=== PATIENT | male | born 1960 | race Caucasian/White ===

== ENCOUNTER 2021-03-23 20:04 | Emergency (ER) | payer OTHER, SELFPAY ==
[2021-03-23 20:13] VITALS: BP 159/89; PULSE 93; RESP 22; TEMP 37.1; O2SAT 93; BMI 31.3
--- NOTE | 2021-03-23 20:23 | DI.RAD.S_ITS ---
PROCEDURE: XR LUMBAR SPINE 2-3V INDICATIONS: Fell, shoulder/back pain TECHNIQUE: 3 views of the lumbar spine were acquired. COMPARISON: None. FINDINGS: Bones: 5 [id number] vertebrae are present. There is minimal retrolisthesis at L1-L2 and L2-L3. There is mild multilevel disc space narrowing throughout the lumbar spine with mild endplate sclerosis. Mild facet arthropathy also demonstrated in the lower lumbar spine. No vertebral body compression fractures. No suspicious bony lesions. Soft tissues: Overlying bowel gas pattern is normal. No suspicious soft tissue calcifications. IMPRESSION: 1. No evidence of fracture or subluxation. 2. Mild multilevel degenerative disc disease throughout the lumbar spine as well as mild facet arthropathy in the lower lumbar spine. Dictated by: Karthikeyan Lenz M.D. on 03/23/2021 at 22:02 Approved by: Karthikeyan Lenz M.D. on 03/23/2021 at 22:03
--- NOTE | 2021-03-23 20:23 | DI.RAD.S_ITS ---
PROCEDURE: XR SHOULDER RT MIN 2V INDICATIONS: Fell, shoulder/back pain TECHNIQUE: 3 views of the shoulder were acquired. COMPARISON: None. FINDINGS: Bones: No fractures or dislocations. No suspicious bony lesions. Visualized ribs appear intact. Soft tissues: No suspicious soft tissue calcifications. IMPRESSION: 1. No fracture or dislocation Dictated by: Karthikeyan Lenz M.D. on 03/23/2021 at 22:01 Approved by: Karthikeyan Lenz M.D. on 03/23/2021 at 22:01
--- NOTE | 2021-03-23 20:23 | DI.RAD.S_ITS ---
PROCEDURE: XR THORACIC SPINE 3V INDICATIONS: Fell, shoulder/back pain TECHNIQUE: 3 views of the thoracic spine were acquired. COMPARISON: None. FINDINGS: Bones: No fractures or subluxation. There is mild multilevel degenerative disc disease within the visualized thoracic and lumbar spine. No suspicious bony lesions. 12 pairs of ribs are noted, and appear intact where visualized. Soft tissues: No paravertebral stripe thickening. IMPRESSION: 1. No evidence of fracture or subluxation. Dictated by: Karthikeyan Lenz M.D. on 03/23/2021 at 22:01 Approved by: Karthikeyan Lenz M.D. on 03/23/2021 at 22:02
--- NOTE | 2021-03-23 22:49 | ED_ITS ---
HPI - Back Pain/Injury General Chief Complaint: Back Pain/Injury Stated Complaint: back pain s/p fall 4 days ago Time Seen by Provider: 03/23/21 22:39 Source: patient History of Present Illness HPI Narrative: Patient is a 60-year-old male history of COPD, hyperlipidemia who presents after fall. He states he was getting out of his RV when he slipped and fell 4 days ago. She he has had ongoing right-sided back pain that shoots up into his right shoulder blade. She has no numbness or tingling in his lower extremities. No change in bowel or bladder habits. He has been taking Aleve without a lot of relief. 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 He feels like he is not get recovered. No head injury or loss of consciousness. He is able to walk. Related Data Previous Rx's Medication Instructions Recorded cyclobenzaprine 5 mg tablet 5 mg PO TID PRN #10 tab 03/23/21 hydrocodone 5 mg-acetaminophen 325 1 tab PO Q6H PRN #10 tab 03/23/21 mg tablet Allergies Allergy/AdvReac Type Severity Reaction Status Date / Time Penicillins Allergy Intermediate Rash Verified 03/23/21 20:12 hydrocodone AdvReac Vomiting Verified 03/23/21 20:12 Review of Systems Review of Systems Narrative: GENERAL: Denies chills,fever HEENT: Denies throat pain RESPIRATORY: Denies dyspnea, cough, wheezing CARDIOVASCULAR: Denies chest pain, palpitations GASTROINTESTINAL: Denies nausea, vomiting MUSCULOSKELETAL: See HPI SKIN: No rash, no laceration, no pruritus NEUROLOGIC: Denies weakness, dizziness, headache, numbness 8 point review of systems is negative except for those stated above and HPI Patient History Social History Smoking Status: Former smoker Smoking Status: Former smoker alcohol intake frequency: a few times a month Substance Use Type: does not use Exam Initial Vital Signs Initial Vital Signs: Vital Signs Temperature 98.8 F 03/23/21 20:13 Pulse Rate 93 H 03/23/21 20:13 Respiratory Rate 22 03/23/21 20:13 Blood Pressure 159/89 H 03/23/21 20:13 Pulse Oximetry 93 03/23/21 20:13 GENERAL: Alert 60-year-old male sitting on edge of bed appears uncomfortable leaning towards the left CARDIOVASCULAR: peripheral pulses in tact, cap refill <2 sec RESPIRATORY: No respiratory distress, speaks in full sentences without difficulty BACK: Slightly tender in the lumbar spine over vertebral areas head more tender in the paraspinal muscles significantly most tender in the right lateral lumbar area. It is tender to touch muscle spasm is appreciated reproducible with palpation. EXTREMITIES: Normal range of motion, no clubbing or edema. Neurovascularly intact NEUROLOGICAL: Cranial nerves II through XII grossly intact. Normal gait and speech. Sensation in lower extremities intact and equal SKIN: Warm, dry, no petechiae, no rashes or lesions. Course Orders Ordered: ED Orders 03/23/21 20:23 XR lumbar spine 2-3V Stat XR shoulder RT min 2V Stat XR thoracic spine 3V Stat Discontinued Medications Cyclobenzaprine HCl (Cyclobenzaprine 10 Mg Prepack) 1 bottle [facility] [place] ONE Stop: 03/23/21 23:04 Last Admin: 03/23/21 23:09 Dose: 1 bottle Documented by: SARAY Ketorolac Tromethamine (Ketorolac 30 Mg/Ml Vial) 30 mg IM NOW ONE Stop: 03/23/21 23:04 Last Admin: 03/23/21 23:09 Dose: 30 mg Documented by: SARAY Oxycodone/Acetaminophen (Oxycodone/Apap 5/325 Prepack) 1 bottle [facility] [place] ONE Stop: 03/23/21 23:06 Last Admin: 03/23/21 23:09 Dose: 1 bottle Documented by: SARAY Vital Signs Vital signs: Vital Signs - 8 hr 03/23/21 20:13 03/23/21 23:38 Temperature 98.8 F 98.0 F Pulse Rate 93 H 68 Respiratory Rate 22 16 Blood Pressure 159/89 H 137/82 Pulse Oximetry 93 95 MDM - Back Pain/Injury Imaging Data Extremity x-ray #1: Radiologist's Impression: PROCEDURE:? XR LUMBAR SPINE 2-3V ? INDICATIONS:? Fell, shoulder/back pain ? TECHNIQUE:? 3 views of the lumbar spine were acquired.? ? COMPARISON:? None. ? FINDINGS:? ? Bones:? 5 [id number] vertebrae are present.? There is minimal retrolisthesis at L1-L2 and L2-L3.? There is mild multilevel disc space narrowing throughout the lumbar spine with mild endplate sclerosis.? Mild facet arthropathy also demonstrated in the lower lumbar spine.? No vertebral body compression fractures.? No suspicious bony lesions.? ? Soft tissues:? Overlying bowel gas pattern is normal.? No suspicious soft tissue calcifications.? ? IMPRESSION:? ? 1. No evidence of fracture or subluxation. ? 2. Mild multilevel degenerative disc disease throughout the lumbar spine as well as mild facet arthropathy in the lower lumbar spine.? ? ? Dictated by: Karthikeyan Lenz M.D. on 03/23/2021 at 22:02 ? ? Approved by: Karthikeyan Lenz M.D. on 03/23/2021 at 22:03 ? Extremity x-ray #2: Radiologist's Impression: PROCEDURE:? XR SHOULDER RT MIN 2V ? INDICATIONS:? Fell, shoulder/back pain ? TECHNIQUE:? 3 views of the shoulder were acquired.? ? COMPARISON:? None. ? FINDINGS:? ? Bones:? No fractures or dislocations.? No suspicious bony lesions.? Visualized ribs appear intact.? ? Soft tissues:? No suspicious soft tissue calcifications.? ? IMPRESSION:? ? 1. No fracture or dislocation ? ? Dictated by: Karthikeyan Lenz M.D. on 03/23/2021 at 22:01 ? ? Extremity x-ray #3: Radiologist's Impression: PROCEDURE:? XR THORACIC SPINE 3V ? INDICATIONS:? Fell, shoulder/back pain ? TECHNIQUE:? 3 views of the thoracic spine were acquired.? ? COMPARISON:? None. ? FINDINGS:? ? Bones:? No fractures or subluxation.? There is mild multilevel degenerative disc disease within the visualized thoracic and lumbar spine.? No suspicious bony lesions.? 12 pairs of ribs are noted, and appear intact where visualized.? ? Soft tissues:? No paravertebral stripe thickening.? ? IMPRESSION:? ? 1. No evidence of fracture or subluxation. ? ? Dictated by: Karthikeyan Lenz M.D. on 03/23/2021 at 22:01 [facility] Narrative Medical decision making narrative: Patient had a fall 4 days ago and continued to aggravate his back while working with heavy machinery. The pain is definitely reproducible with palpation this is likely a muscle spasm. X-rays are negative. This time I see no need for any further imaging such as a CT scan. He is offered a work note but declines at this time. He is given cyclobenzaprine and hydrocodone for discharge medications. Discharge Plan Departure Patient Disposition: Home Clinical Impression: Lumbar back pain Instructions: DI for Low Back Pain, DI for Back Spasm Activity Restrictions/Additional Instructions: *You have been diagnosed with back spasm *What to do: At this time recommend heating pad light stretching x-rays are negative for broken bone *Continue to take medications as directed Ibuprofen 600 mg every 6 hours if needed for [id number] pain Flexeril 5 mg every 8 hours if needed for muscle spasm do not take while operating heavy machinery [place] 1 tablet every 6 hours if needed for severe pain do not take while operating heavy machinery or drive *Follow up with your primary care provider in 2-3 days *Return to ER if you should have increasing pain, weakness in legs, change in urine or stool or any new weakness or any new, worsening or concerning symptoms CONTROLLED SUBSTANCE DISCHARGE (Narcotoic/benzodiazepine/Flexeril/Phenergan) 1. You have been prescribed narcotic medications, it does have acetaminophen/Tylenol/paracetamol in it, DO NOT TAKE MORE THAN 4,00mg in 24 hours of Tylenol. TRAMADOL DOES NOT CONTAIN TYLENOL 2. Please understand that we cannot provide further refills of narcotics, benzodiazepines or controlled substances through the ED and her pain management will need to be through your provider. 3. While on these medications you cannot drive or operate heavy machinery. 4. You cannot sign legal documents or perform any duties such as this. 5. As long as you're taking opiate pain medications he should also be taking a stool softener such as Colace, Dulcolax, MiraLAX or prune juice, to help avoid constipation. Prescriptions: New hydrocodone-acetaminophen 5-325 mg tablet 1 tab PO Q6H PRN (Reason: pain) Qty: 10 0RF cyclobenzaprine 5 mg tablet 5 mg PO TID PRN (Reason: muscle spasm) Qty: 10 0RF
[2021-03-23] MEDS: OXYCODONE/APAP 5/325 PREPACK 1 BOTTLE MISC (23:09)
[2021-03-23] MEDS: CYCLOBENZAPRINE 10 MG PREPACK 1 BOTTLE MISC (23:09)
[2021-03-23] MEDS: KETOROLAC 30 MG/ML VIAL IM (23:09)
[2021-03-23 23:38] VITALS: BP 137/82; PULSE 68; RESP 16; TEMP 36.7; O2SAT 95
== END 2021-03-23 23:40 | disposition home or self-care (01) ==
PROVIDERS: Emergency Provider Emergency Medicine
DX: M54.50 Low back pain, unspecified (principal); W01.0XXA Fall on same level from slipping, tripping and stumbling without subsequent striking against object, initial encounter
CPT/HCPCS: 72072; 72100; 73030; 96372; 99283; J1885

== ENCOUNTER 2021-08-15 18:14 | Emergency (ER) | payer BC, SELFPAY ==
[2021-08-15] VITALS (9 sets, daily range): BP systolic 112–148; BP diastolic 58–96; PULSE 54–67; RESP 12–24; TEMP 36.9; O2SAT 91–94; BMI 32.8
--- NOTE | 2021-08-15 18:31 | DI.RAD.S_ITS ---
PROCEDURE: XR CHEST 1V INDICATIONS: SHORTNESS OF BREATH TECHNIQUE: One view of the chest was acquired. COMPARISON: None. FINDINGS: Surgical changes and devices: None. Lungs and pleura: Increased interstitial markings. No pleural effusions or pneumothorax. Mediastinum: Mediastinal contours appear normal. Cardiomegaly. Bones and chest wall: No suspicious bony lesions. Overlying soft tissues appear unremarkable. IMPRESSION: Cardiomegaly with mild interstitial edema. Dictated by: Ayden Mabry M.D. on 08/15/2021 at 18:35 Approved by: Ayden Mabry M.D. on 08/15/2021 at 18:37
--- NOTE | 2021-08-15 19:16 | ED_ITS ---
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 Yesterday he states that he had a fever with some chills last night. He describes he was dizzy yesterday, he had bent over while at work and required assistance from his coworkers to stand back up which is unusual for him. Complains of a low-grade headache. He does note that he has had 2 COVID vaccinations. Review he describes rib injury in the lower right side about 3-4 weeks ago at work. Still describes some minor pain in the area but it is improving significantly. Describes no chest pain, palpitations, orthopnea, lower extremity edema. He does note that he has been feeling increasingly dyspneic and that was the main incentive for his visit today. Related Data Previous Rx's Medication Instructions Recorded cyclobenzaprine 5 mg tablet 5 mg PO TID PRN #10 tab 03/23/21 hydrocodone 5 mg-acetaminophen 325 1 tab PO Q6H PRN #10 tab 03/23/21 mg tablet doxycycline monohydrate 100 mg 100 mg PO BID #20 cap 08/15/21 capsule prednisone 20 mg tablet 20 mg PO BID #11 tab 08/15/21 Allergies Allergy/AdvReac Type Severity Reaction Status Date / Time Penicillins Allergy Intermediate Rash Verified 08/15/21 18:30 hydrocodone AdvReac Vomiting Verified 08/15/21 18:30 Review of Systems Review of Systems Narrative: Remainder of complete review of systems is otherwise unremarkable except for that included in the HPI. Patient History Medical History (Updated 08/15/21 @ 21:13 by Lynnette Roblero MD) COPD (chronic obstructive pulmonary disease) Diabetes Gout Hyperlipidemia Social History Smoking Status: Former smoker Smoking Status: Former smoker alcohol intake frequency: a few times a month Substance Use Type: does not use Exam Initial Vital Signs Initial Vital Signs: Vital Signs Pulse Rate 63 08/15/21 18:24 Respiratory Rate 21 08/15/21 18:24 Blood Pressure 130/63 08/15/21 18:24 Pulse Oximetry 94 08/15/21 18:24 General: Healthy appearing, in no acute distress. Able to give a complete and coherent history. Well-nourished well-developed HEENT: Moist mucous membranes, normal sclera with reactive pupils, Neck: No JVD, supple Respiratory: Lungs with scattered wheeze in all lung alfredo, rhonchi bilaterally right greater than left, no crackles. Cardiac: Irregular rhythm, no murmurs, no bruits Abdomen: Soft, nontender, good bowel tones, no flank pain Skin: Warm and dry, no rashes Neurologic: Grossly neurologically intact with no obvious asymmetries or abnormalities Extremities: No trauma, well perfused, no lower extremity edema Psych: Cooperative, appropriate insight and affect Course Orders Ordered: ED Orders 08/15/21 18:23 EKG-12 Lead Routine 08/15/21 18:30 COVID19 -Nasal RAPID/Pre-Proc Stat Complete Blood Count AUTO DIFF Stat Comprehensive Metabolic Panel Stat Lactate (Lactic Acid) Stat NT-proBNP (BNP-Adult 18+) Stat Troponin I Stat 08/15/21 18:31 XR chest 1V Stat 08/15/21 19:00 EKG-12 Lead Stat Measure peak expiratory flow ONCE RT Consult Eval and Treat Now 08/15/21 19:01 XR chest 1V Stat Discontinued Medications Doxycycline Hyclate (Doxycycline Hyclate 100 Mg Tablet) 100 mg PO NOW ONE Stop: 08/15/21 20:00 Last Admin: 08/15/21 20:10 Dose: 100 mg Documented by: Levofloxacin (Levofloxacin 250 Mg Tablet) 750 mg PO NOW ONE Stop: 08/15/21 19:44 Last Admin: 08/15/21 19:52 Dose: 750 mg Documented by: Methylprednisolone (Methylprednisolone 125 Mg/2 Ml Vial) 60 mg IV NOW ONE Stop: 08/15/21 19:44 Last Admin: 08/15/21 19:52 Dose: 60 mg Documented by: Vital Signs Vital signs: Vital Signs - 8 hr 08/15/21 18:24 08/15/21 18:30 08/15/21 19:00 Temperature 98.4 F Pulse Rate 63 63 60 Respiratory Rate 21 20 21 Blood Pressure 130/63 115/58 L 112/61 Pulse Oximetry 94 94 92 Medical Decision Making Lab Data Result diagrams: 08/15/21 18:30 08/15/21 18:30 Labs: Lab Results 08/15/21 08/15/21 08/15/21 Range/Units 18:30 18:30 18:30 WBC 9.3 (4.5-11.0) X10^3/uL RBC 4.65 (4.5-5.9) X10^6/uL Hgb 14.0 (13.5-17.5) g/dL Hct 40.9 L (41-53) % MCV 87.9 (80-100) fL MCH 30.2 (26-34) PG MCHC 34.3 (30-36) % RDW 13.7 (11.6-14.8) % Plt Count 179 (150-400) X10^3/uL Neut % (Auto) 68.9 (50-75) % Lymph % (Auto) 18.2 L (25-40) % [place] % (Auto) 10.3 (3-14) % Eos % (Auto) 2.1 (2-4) % Baso % (Auto) 0.5 (0-2) % Neut # (Auto) 6400 (5065-6220) /uL Lymph # (Auto) 1700 (9287-7242) /uL [place] # (Auto) 1000 H (0-900) /uL Eos # (Auto) 200 (0-450) /uL Baso # (Auto) 0 (0-100) /uL Sodium 140 (137-145) mmol/L Potassium 4.2 (3.4-5.1) mmol/L Chloride 100 (98-107) mmol/L Carbon Dioxide 35 H (22-32) mmol/L BUN 18 (9-20) mg/dL Creatinine 0.67 (0.66-1.25) mg/dL Estimated GFR > 60 (>60) mL/min BUN/Creatinine Ratio 26.9 H (6-22) Glucose 177 H (80-110) mg/dL Lactate 1.1 (0.7-2.1) mmol/L Calcium 9.6 (8.4-10.2) mg/dL Total Bilirubin 0.9 (0.2-1.3) mg/dL AST 27 (17-59) IU/L ALT 22 (<50) IU/L Alkaline Phosphatase 92 (38-126) U/L Troponin I (0.01-0.034) ng/mL NT-Pro-B Natriuret Pep (<125) pg/mL Total Protein 8.0 (6.3-8.2) g/dL Albumin 4.5 (3.5-5.0) g/dL Globulin 3.5 (1.7-4.1) g/dL Albumin/Globulin Ratio 1.3 (1.0-2.8) SARS-CoV-2 (PCR) (Negative) 08/15/21 08/15/21 08/15/21 Range/Units 18:30 18:30 18:30 WBC (4.5-11.0) X10^3/uL RBC (4.5-5.9) X10^6/uL Hgb (13.5-17.5) g/dL Hct (41-53) % MCV (80-100) fL MCH (26-34) PG MCHC (30-36) % RDW (11.6-14.8) % Plt Count (150-400) X10^3/uL Neut % (Auto) (50-75) % Lymph % (Auto) (25-40) % [place] % (Auto) (3-14) % Eos % (Auto) (2-4) % Baso % (Auto) (0-2) % Neut # (Auto) (8712-2980) /uL Lymph # (Auto) (4335-7092) /uL [place] # (Auto) (0-900) /uL Eos # (Auto) (0-450) /uL Baso # (Auto) (0-100) /uL Sodium (137-145) mmol/L Potassium (3.4-5.1) mmol/L Chloride (98-107) mmol/L Carbon Dioxide (22-32) mmol/L BUN (9-20) mg/dL Creatinine (0.66-1.25) mg/dL Estimated GFR (>60) mL/min BUN/Creatinine Ratio (6-22) Glucose (80-110) mg/dL Lactate (0.7-2.1) mmol/L Calcium (8.4-10.2) mg/dL Total Bilirubin (0.2-1.3) mg/dL AST (17-59) IU/L ALT (<50) IU/L Alkaline Phosphatase (38-126) U/L Troponin I < 0.012 (0.01-0.034) ng/mL NT-Pro-B Natriuret Pep 376 H (<125) pg/mL Total Protein (6.3-8.2) g/dL Albumin (3.5-5.0) g/dL Globulin (1.7-4.1) g/dL Albumin/Globulin Ratio (1.0-2.8) SARS-CoV-2 (PCR) Negative (Negative) Imaging Data Chest x-ray: My Impression: Independent review of chest x-ray suggests linear streaking in the right base was consistent with his clinical exam and concern for developing pneumonia Radiologist's Impression: FINDINGS:? ? Surgical changes and devices:? None.? ? Lungs and pleura:? Increased interstitial markings.? No pleural effusions or pneumothorax.? ? Mediastinum:? Mediastinal contours appear normal.? Cardiomegaly. ? Bones and chest wall:? No suspicious bony lesions.? Overlying soft tissues appear unremarkable.? ? IMPRESSION:? Cardiomegaly with mild interstitial edema. ? ? Dictated by: Ayden Mabry M.D. on 08/15/2021 at 18:35? ?? ECG Data Interpretation: Sinus [place] at a rate of [address] T wave changes Normal intervals, normal axis No acute ischemic changes Frequent PACs are noted on telemetry MDM Narrative Medical decision making narrative: 60-year-old gentleman with fevers yesterday increasing cough productive today increasing dyspnea history of COPD and concerned that he has felt pneumonia. Chest x-ray and clinical exam do seem to suggest that. White count is not significantly elevated. Chemistries are fairly benign with normal creatinine, minimally elevated proBNP and normal troponin without acute EKG changes Patient was given a dose of oral Levaquin and almost immediately vomited the entire pill backup. He has not had nausea or vomiting today. Will assume it was secondary to the Levaquin itself and will switch to doxycycline At this time I do think that he is developing a right-sided pneumonia in the setting of COPD without congestive heart failure or acute coronary syndrome. He is given steroids and an initial dose of antibiotics in the emergency department and oxygen saturations remained than 93% range even with exercise at bedside. I do believe he is safe for home discharge will ask him to continue all of his inhalers in place him on a steroid taper as well as 10 days of doxycycline. Clearly reviewed with him the need to return if his dyspnea progresses. Questions Are answered he is safe for home discharge Discharge Plan Departure Patient Disposition: Home Clinical Impression: Acute exacerbation of chronic obstructive pulmonary disease Community acquired pneumonia Qualifiers: Laterality: right Lung location: lower lobe of lung Qualified Code(s): J18.9 - Pneumonia, unspecified organism Instructions: DI for Chronic Obstructive Pulmonary Disease, DI for Pneumonia -- Adult Activity Restrictions/Additional Instructions: Thank you for coming in today I think that your developing a pneumonia in your right lower portion of your lung which is why your having the fevers, the increased cough and increased shortness of breath. This is exacerbating your COPD. Your oxygen levels as well as blood work in the emergency department are reassuring. There is no evidence of congestive heart failure or heart attack. Please continue all of your COPD inhalers I am going to prescribe 10 days of doxycycline, and antibiotic to treat the pneumonia and a prednisone taper. 40 mg for 2 days, 30 mg 2 days, 20 mg 2 days, 10 mg for 4 days then discontinue Prescriptions: New doxycycline monohydrate 100 mg capsule 100 mg PO BID Qty: 20 0RF prednisone 20 mg tablet 20 mg PO BID Qty: 11 0RF Rx Instructions: 40mg for 2 days, 30mg for 2 days, 20mg for 2 days, 10mg for 4 days No Action hydrocodone-acetaminophen 5-325 mg tablet 1 tab PO Q6H PRN (Reason: pain) Qty: 10 0RF cyclobenzaprine 5 mg tablet 5 mg PO TID PRN (Reason: muscle spasm) Qty: 10 0RF Referrals: Miscellaneous,Doctor, [Primary Care Provider] -
[2021-08-15 19:17] LABS: Add Manual Diff / Slide Review NO; Basophils Absolute Auto 0 /uL (0-100); Basophils Percent Auto 0.5 % (0-2); Eosinophils Absolute Auto 200 /uL (0-450); Eosinophils Percent Auto 2.1 % (2-4); Hematocrit 40.9 % (41-53); Lymphocytes Absolute Auto 1700 /uL (1100-4500); Lymphocytes Percent Auto 18.2 % (25-40); Mean Corpuscular HGB Conc 34.3 % (30-36); Mean Corpuscular Hemoglobin 30.2 PG (26-34); Mean Corpuscular Volume 87.9 fL (80-100); Monocytes Absolute Auto 1000 /uL (0-900); Monocytes Percent Auto 10.3 % (3-14); Neutrophils Absolute Auto 6400 /uL (1500-7000); Neutrophils Percent Auto 68.9 % (50-75); Platelet Count 179 X10^3/uL (150-400); Red Blood Cell Count 4.65 X10^6/uL (4.5-5.9); Red Cell Distribution Width 13.7 % (11.6-14.8); White Blood Cell Count 9.3 X10^3/uL (4.5-11.0)
[2021-08-15 19:22] LABS: Alanine Aminotransferase 22 IU/L (<50); Albumin 4.5 g/dL (3.5-5.0); Albumin Globulin Ratio 1.3 (1.0-2.8); Alkaline Phosphatase 92 U/L (38-126); Aspartate Aminotransferase 27 IU/L (17-59); BUN Creatinine Ratio 26.9 (6-22); Bilirubin Total 0.9 mg/dL (0.2-1.3); Blood Urea Nitrogen 18 mg/dL (9-20); Calcium 9.6 mg/dL (8.4-10.2); Carbon Dioxide 35 mmol/L (22-32); Chloride 100 mmol/L (98-107); Estimated Glomerular Filt Rate > 60 mL/min (>60); Globulin 3.5 g/dL (1.7-4.1); Glucose 177 mg/dL (80-110); HEMOLYSIS 16 (0-50); Lactate (Lactic Acid) 1.1 mmol/L (0.7-2.1); Potassium 4.2 mmol/L (3.4-5.1); Sodium 140 mmol/L (137-145)
[2021-08-15 19:31] LABS: COVID19 -Nasal RAPID Negative (Negative); NT-proBNP (BNP-Adult 18+) 376 pg/mL (<125)
[2021-08-15] MEDS: methylPREDNISolone 125 MG/2 ML VIAL 60 MG IV (19:52)
[2021-08-15] MEDS: levoFLOXacin 250 MG TABLET 750 MG PO (19:52)
--- NOTE | 2021-08-15 19:58 | PC.NURSE ---
administered levaquin PO per JUN. Pt vomited pills and water about 30-[address] Roblero made aware. Awaiting further orders
[2021-08-15] MEDS: DOXYCYCLINE HYCLATE 100 MG TABLET PO (20:10)
[2021-08-15 20:29] LABS: Troponin I < 0.012 ng/mL (0.01-0.034)
== END 2021-08-15 21:36 | disposition home or self-care (01) ==
PROVIDERS: Emergency Provider Emergency Medicine
DX: J44.1 Chronic obstructive pulmonary disease with (acute) exacerbation (principal); J18.9 Pneumonia, unspecified organism; Z20.822 Contact with and (suspected) exposure to COVID-19
CPT/HCPCS: 36415; 71045; 80053; 83605; 83880; 84484; 85025; 87635; 93005; 96374; 99284; C9803; J2930